=== PATIENT | female | born 1960 | race Caucasian/White ===

== ENCOUNTER → 2017-03-05 | Outpatient (CLI) | payer BC | LOC: WI 09:11 | PROVIDERS: ATTEND Family Medicine | DX: Z12.31 Encounter for screening mammogram for malignant neoplasm of breast (principal) | CPT/HCPCS: 77067; G0202 ==

== ENCOUNTER → 2017-04-08 | Outpatient (CLI) | payer BC ==
--- NOTE | 2017-04-08 19:25 | WOMENS IMAGING REPORT ---
EXAM DESCRIPTION: LEFT DIAGNOSTIC MAMMO W/CAD COMPLETED DATE/TIME: 04/08/2017 8:54 am REASON FOR STUDY: LUMP; N63 N63 UNSPECIFIED LUMP IN BREAST COMPARISON: 03/05/2017 TECHNIQUE: Left breast craniocaudad and 90 mediolateral tomosynthesis LIMITATIONS: None. FINDINGS: BREAST: Left MASSES: No suspicious masses. CALCIFICATIONS: No new or suspicious calcifications. ARCHITECTURAL DISTORTION: None. DEVELOPING DENSITY: None. ASYMMETRY: None noted. OTHER: No other significant findings. IMPRESSION: No mammographic/ tomosynthesis evidence for malignancy left breast. BREAST DENSITY: b. There are scattered areas of fibroglandular density. BIRAD: 1 Negative. RECOMMENDATION: RECOMMENDED FOLLOW UP: Please continue yearly bilateral screening tomosynthesis in A ugust 2018. SPECIFIC INTERVENTION/IMAGING/CONSULTATION RECOMMENDED:No additional intervention/ imaging/consultati on needed at this time. COMMUNICATION:Patient notified by letter COMMENT: The patient has been notified of the results by letter per SA requirements. Additional no tification policies are in place for contacting patient with suspicious or incomplete findings. Quality ID #[id number]: The [employer] recommends an annual screening mammogram for women aged 40 years or over. This facility utilizes a reminder system to ensure that all patients receive reminder letters, and/or direct phone calls for appointments. This includes reminders for routine scr eening mammograms, diagnostic mammograms, or other Breast Imaging Interventions when appropriate. Th is patient will be placed in the appropriate reminder system. The [employer] ([employer]) has developed recommendations for screening MRI of the breast s in certain patient populations, to be used in conjunction with mammography. Breast MRI surveillanc e may be appropriate for women with more than 20% lifetime risk of developing breast cancer as deter mined by genetic testing, significant family history of the disease, or history of mantle radiation f or Hodgkins Disease. ACR Practice Guidelines 2008. DBT Technology DBT is a type of tomographic mammography. With conventional mammography, overlapping breast tissue ma y make lesions difficult to detect, even with good compression. DBT uses an x-ray tube that rotates a round the breast, taking images at different angles. These images are then combined to create thin sl ices of the breast that the radiologist can view as a 3D reconstruction. The [employer] can perform full-field digital mammograms (2D imaging); or DBT (3D imaging); or both, in a combination mode that quickly performs both the mammogram and the tomosynthesis scan while the breast is still compressed. PQRS 6045F: Fluoroscopic imaging is not utilized for breast tomosynthesis. TECHNICAL DOCUMENTATION: FINDING NUMBER: (1) ASSESSMENT: (1) JOB ID: [id number] [employer]- All Rights Reserved
== END ==
LOC: WI 08:32
PROVIDERS: ATTEND Family Medicine
DX: N63 Unspecified lump in breast (principal)
CPT/HCPCS: G0206-52

== ENCOUNTER 2017-07-20 21:36 | Emergency (ER) | payer SELFPAY ==
[2017-07-21] MEDS ORDERED: OXYCODONE-ACETAMINOPHEN 5-325 MG TABLET PO ONE (00:11)
--- NOTE | 2017-07-21 00:11 | ER Document Report ---
HPI - HPI Patient complains to provider of: knee pain Pain Level: 4 Context: Patient is a 57-year-old female presents emergency department complaining of right knee pain. Patient states that she fell near her around [place] and is since then been having ongoing left lateral knee pain that is worse with movement and weightbearing and occasionally she is reinjuring it as it gives out on her. She has not followed up with her primary care doctor about this. Otherwise she denies any numbness or tingling distal to her knee any ankle pain or temperature changes in her foot. - REPRODUCTIVE LMP: na Past Medical History - Social History Smoking Status: Never Smoker Family History: Reviewed & Not Pertinent Vertical Provider Document - CONSTITUTIONAL Agree With Documented VS: Yes Notes: PHYSICAL EXAM GENERAL: Alert, interacts well. EXTREMITIES: Left knee able to flex to 90 with negative anterior posterior drawer test. Patient is able to bear weight with assistance. Right knee stable. Left hip nontender full range of motion, left ankle nontender full range of motion. No evidence of calf tenderness, negative Homans sign. No edema,dorsalis pedis pulses 2/4 bilaterally. No cyanosis. NEUROLOGICAL: Alert and oriented x4. Normal speech. PSYCH: Normal affect, normal mood. SKIN: Warm, dry, normal turgor. No rashes or lesions noted. - INFECTION CONTROL TRAVEL OUTSIDE OF THE [place] IN LAST 30 DAYS: No - RESPIRATORY O2 Sat by Pulse Oximetry: 98 Course - Re-evaluation Re-evalutation: 07/21/17 01:23 Patient is a 57-year-old female is hemodynamically stable, no acute distress and afebrile presentation is consistent with recurrent knee sprain versus internal knee injury. Patient placed in a knee immobilizing splint and crutches and discussed to follow-up with her primary care doctor for further imaging and evaluation. Patient agrees with plan and is stable for discharge home - Vital Signs Vital signs: Temp Pulse Resp BP Pulse Ox 98.5 F 74 18 151/72 H 98 07/20/17 22:19 07/20/17 22:19 07/20/17 22:19 07/20/17 22:19 07/20/17 22:19 - Diagnostic Test Radiology reviewed: Image reviewed, Reports reviewed Procedures - Immobilization Left Knee Pre-Proc Neuro Vasc Exam: Normal Immobilizer type: Knee immobilizer Performed by: PCT Post-Proc Neuro Vasc Exam: Normal, Unchanged from pre-exam Alignment checked and good: Yes Discharge - Discharge Clinical Impression: Knee pain Qualifiers: Chronicity: acute Laterality: left Qualified Code(s): M25.562 - Pain in left knee Condition: Good Disposition: HOME, SELF-CARE Instructions: Use of Crutches ([facility]), Knee Immobilizing Splint ([facility]), Ice & Elevation ([facility]), Suspected Internal Knee Injury ([facility]), Sprained Knee ([facility]) Additional Instructions: Please follow-up with your primary care doctor in approximately 1 week for reimaging/reevaluation as deemed necessary by your primary care Prescriptions: Ibuprofen [Motrin 800 mg Tablet] 800 mg PO Q8H PRN #30 tab PRN Reason: Referrals: YANNA WOOD MD [Primary Care Provider] - Follow up in 1 week
--- NOTE | 2017-07-21 01:16 | RADIOLOGY REPORT (SQ) ---
EXAM DESCRIPTION: KNEE LEFT 4 VIEW CLINICAL HISTORY: fall, pain COMPARISON: None. FINDINGS: 4 views of the left knee. No acute fracture or dislocation. Osteopenia. Joint spaces preserved. No definite joint effusion. IMPRESSION: 1. No acute fracture.
[2017-07-21 01:55] VITALS: BP 147/77
== END 2017-07-21 01:55 | disposition home or self-care (01) ==
LOC: ER 21:36
DX: M25.562 Pain in left knee (principal)
CPT/HCPCS: 99283; 73562; L1830